=== PATIENT | female | born 1960 | race Two or more races ===

== ENCOUNTER 2024-10-23 10:37 | Inpatient (IN) | payer MEDICAID, OTHER ==
[~2024-10-23] VITALS: Ht 162.6 cm; Wt 100.1 kg
--- NOTE | 2024-10-23 11:41 | ED.PDOC ---
HPI (NEURO) HPI Comments 64 year old female with a history of CHF, hypertension, pacemaker presents to the ED with a chief complaint of headache s/p fall onset 10/13/24. Patient states she fell on 10/13/24, fell backwards, hit RT side head, RT hip, states she saw black, unsure if there was LOC, was experiencing headache. Patient was taken to [place], states she was told she had to wait about [address] scan, left with no imaging done. Since then, patient has been experiencing headache, unsteady gait. 2 days ago, patient lost her balance, fell backwards, hit her head and LT arm on the ground, unsure if there was LOC, saw black, had a burning sensation on her head and nose. Since then, she noticed headache has worsen is also experiencing generalized body aches, unsteady gait. Patient states that she feels unsafe to go home and wants to stay in the hospital. Denies chest pain, shortness of breath, fever, chills, nausea, vomiting. No other symptoms or modifying factors present at this time. Chief Complaint: Fall Injury Time Seen by MD: 11:10 Reviewed Notes: Medications, Allergies Information Source: Patient Mode of Arrival: Ambulatory Severity: Moderate Headache Severity: Moderate Timing: Weeks Duration: Since onset Prehospital treatment: None Headache Quality: Sharp Headache Location: Generalized Symptoms: Imbalance Associated Signs and Symptoms: Headache Past Medical History PAST MEDICAL HISTORY: CHF, HTN Surgical History: Hernia Repair, Pacemaker PSYCHOLOGY TECHNICIAN History: No Pertinent PSYCHOLOGY TECHNICIAN History Family History Family History: Reviewed,noncontributory to illness, No family hx of Cancer, No family hx of DM, No family hx of Heart pratik, No family hx of HTN, No family hx ofKidney pratik, No family hx of Liver pratik, No family hx of Lung pratik, No family hx of Stroke Social History Smoker: Non-Smoker Alcohol: Denies ETOH Use Drugs: Denies Drug Use Lives In: Home Constitutional: denies: chills, diaphoresis, fatigue, fever, malaise, sweats, weakness, others EENTM: reports: eye redness (LT); denies: blurred vision, double vision, ear bleeding, ear discharge, ear drainage, ear pain, ear ringing, eye pain, hearing loss, mouth pain, mouth swelling, nasal discharge, nose bleeding, nose congestion, nose pain, photophobia, tearing, throat pain, throat swelling, voice changes, others Respiratory: denies: cough, hemoptysis, orthopnea, SOB at rest, shortness of breath, SOB with excertion, stridor, wheezing, others Cardiovascular: denies: chest pain, dizzy spells, diaphoresis, Dyspnea on exertion, edema, irregular heart beat, left arm pain, lightheadedness, palpitations, PND, syncope, others Gastrointestinal: denies: abdomen distended, abdominal pain, blood streaked bowels, constipated, diarrhea, dysphagia, difficulty swallowing, hematemesis, melena, nausea, poor appetite, poor fluid intake, rectal bleeding, rectal pain, vomiting, others Genitourinary: denies: abnormal vagina bleeding, burning, dyspareunia, dysuria, flank pain, frequency, hematuria, incontinence, pain, , vagina discharge, urgency, others Neurological: reports: dizziness, headache, others (unsteady gait); denies: fainting, left sided numbness, left sided weakness, numbness, paresthesia, pre- existing deficit, right sided numbness, right sided weakness, seizure, speech problems, tingling, tremors, weakness Musculoskeletal: reports: others (LT arm pain); denies: back pain, gout, joint pain, joint swelling, muscle pain, muscle stiffness, neck pain Integumetry: denies: bruises, change in color, change in hair/nails, dryness, laceration, lesions, lumps, rash, wounds, others Allergic/Immunocompromised: denies: Difficulty Healing, Frequent Infections, Hives, Itching, others Hematologic/Lymphatic: denies: anemia, blood clots, easy bleeding, easy bruising, swollen glands, others Endocrine: denies: excessive hunger, excessive sweating, excessive thirst, excessive urination, flushing, intolerance to cold, intolerance to heat, unexplained weight gain, unexplained weight loss, others Psychiatric: denies: anxiety, bipolar disorder, depression, hopeless, panic disorder, schizophrenia, sleepless, suicidal, others All Other Systems: Reviewed and Negative Physical Exam General Appearance: Normal, Other (Tired appearing) HEENT: Normal ENT Inspection, Pharynx Normal, TMs Normal Neck: Full Range of Motion, Non-Tender, Normal, Normal Inspection Respiratory: Chest Non-Tender, Lungs Clear, No Accessory Muscle Use, No Respiratory Distress, Normal Breath Sounds Cardiovascular: No Edema, No JVD, No Murmur, No Gallop, Normal Peripheral Pulses, Regular Rate/Rhythm Breast Exam: Deferred Gastrointestinal: No Organomegaly, Non Tender, No Pulsatile Mass, Normal Bowel Sounds, Soft Genitalia: Deferred Pelvic: Deferred Rectal: Deferred Extremities: No calf tenderness, Normal capillary refill, Normal inspection, Normal range of motion, Non-tender, No pedal edema Musculoskeletal : Apperance: Normal Neurologic: Alert, licensed practical nurse instructor II-XII nml as Tested, No Motor Deficits, Normal Affect, Normal Mood, No Sensory Deficits, Other (Able to ambulate but appears to be unsteady) Cerebellar Function: NOT DONE Reflexes: NOT DONE Skin: Dry, Normal Color, Warm Lymphatic: No Adenopathy Was a procedure done? Was a procedure done?: No Differential Diagnosis (SZ) Seizure: Closed Head Injury, CVA/TIA, Syncope, Encephalopathy CVA: CVA, Electrolyte Imbalance, Hypoglycemia, SAH Headache: Migraine, Subarachnoid Hemorrhage, Subdural Hemorrhage X-Ray, Labs, Meds, VS Vital Signs Date Time Temp Pulse Resp B/P (MAP) Pulse Ox O2 Delivery O2 Flow Rate FiO2 10/23/24 10:50 70 10/23/24 10:42 98.1 76 18 153/89 97 98.1 Lab Test 10/23/24 11:36 Range/Units White Blood Count 5.0 4.4-10.8 10^3/uL Red Blood Count 4.63 4.0-5.20 10^6/uL Hemoglobin 13.8 12.2-16.2 g/dL Hematocrit 40.7 36.0-46.0 % Mean Corpuscular Volume 87.8 80.0-100.0 fL Mean Corpuscular Hemoglobin 29.7 28.0-32.0 pg Mean Corpuscular Hemoglobin Concent 33.8 32.0-36.0 g/dL Red Cell Distribution Width 13.9 11.8-14.3 % Platelet Count 198 140-450 10^3/uL Mean Platelet Volume 8.3 6.9-10.8 fL Neutrophils (%) (Auto) 65.2 37.0-80.0 % Lymphocytes (%) (Auto) 24.3 10.0-50.0 % Monocytes (%) (Auto) 7.6 0.0-12.0 % Eosinophils (%) (Auto) 2.2 0.0-7.0 % Basophils (%) (Auto) 0.7 0.0-2.0 % Neutrophils # (Auto) 3.3 1.6-8.6 10 ^3/uL Lymphocytes # (Auto) 1.2 0.4-5.4 10 ^3/uL Monocytes # (Auto) 0.4 0-1.3 10 ^3/uL Eosinophils # (Auto) 0.1 0-0.8 10 ^3/uL Basophils # (Auto) 0 0-0.2 10 ^3/uL Nucleated Red Blood Cells 0.1 % Sodium Level 140 136-145 mmol/L Potassium Level 4.4 3.5-5.1 mmol/L Chloride Level 106 98-107 mmol/L Carbon Dioxide Level 26 20-31 mmol/L Anion Gap 8 5-15 Blood Urea Nitrogen 15 9-23 mg/dL Creatinine 0.69 0.550-1.02 mg/dL Glomerular Filtration Rate Calc 98 >90 mL/min BUN/Creatinine Ratio 21.7 H 10.0-20.0 Serum Glucose 82 74-106 mg/dL Calcium Level 9.1 8.7-10.4 mg/dL Troponin I High Sensitivity 4 </=34 ng/L B-Type Natriuretic Peptide 52.37 0-100 pg/mL Lipase 38 12-53 U/L Current Medications Medications (Trade) Dose Ordered Sig/Rossy Route Start Time Stop Time Status Last Admin Sodium Chloride 1,000 ml @ 1,000 mls/hr Q1H ONCE IV 10/23/24 12:15 10/23/24 13:14 DC 10/23/24 12:35 X-Ray, Labs, Meds, VS Comment 64-year-old female with a history of CHF, pacemaker, additional medical problems here today with complaints of multiple falls, unsteady gait, generalized weakness. Vital signs stable, afebrile. Physical exam without significant acute findings aside from patient having an unsteady gait. Labs overall reassuring without evidence of significant abnormalities. Troponin negative and EKG without evidence of acute ischemia, doubt ACS. No significant electrolyte abnormalities. CT head and cervical spine without evidence of acute pathology. Chest x-ray unremarkable. 1 L of normal saline ordered for the patient. Patient to be admitted for further management of her generalized weakness and unsteady gait, consideration of PT/OT/Neurology consult/MRI/telemetry monitoring. Patient understanding and in agreement with the plan. Time of 1ST Reevaluation: 11:40 Reevaluation 1ST: Unchanged Patient Education/Counseling: Diagnosis, Treatment, Prognosis Family Education/Counseling: No Family Present Additional Information The following tests were ordered, and results were reviewed by me: EKG, BMP, LIPASE, BNP, TROP,CT HEAD WO CONTRAST, CT CERVICAL WO CONTREAST, XY CHEST, UA I reviewed and agreed with the following test results read by other provider: CT HEAD WO CONTRAST, CT CERVICAL WO CONTREAST, XY CHEST I discussed treatments and results with medical personnel and: PATIENT Comprehensive systems review obtained and negative except for what is stated in the HPI. Departure 1 Departure Time of Disposition: 13:23 Impression: Primary Impression: Frequent falls Additional Impressions: Generalized weakness History of CHF (congestive heart failure) History of pacemaker Unsteady gait Disposition: 02 SHORT TERM HOSPITAL Admit to: Tele Condition: Stable Critical Care Note Critical Care Time?: Yes (30 min-critical care time only) Stability Stability form required: No Heart Score Heart Score: Heart Score Response (Comments) Value History N/A 0 EKG N/A 0 Age N/A 0 Risk Factors N/A 0 Troponin N/A 0 Total 0 I personally scribed for VINCE PALAFOX MD ([email or web address]) on 10/23/24 at 11:41. Electronically submitted by Yi Sharp ([email or web address]). I personally scribed for VINCE PALAFOX MD ([email or web address]) on 10/23/24 at 11:58. Electronically submitted by Yi Sharp ([email or web address]). VINCE PALAFOX MD Oct 23, 2024 11:41
--- NOTE | 2024-10-23 11:43 | DVH ---
EXAM: XY CHEST PORTABLE HISTORY: fall COMPARISON: None TECHNIQUE: Portable upright AP view of the chest was performed. FINDINGS: No pneumothorax, consolidative infiltrates, or pulmonary edema. The heart is borderline enlarged. The re is a left chest AICD. There is abundant overlying soft tissue. No fractures are identified about t he bony thorax. IMPRESSION: 1. No acute intrathoracic process. 2. Left chest AICD and borderline cardiomegaly.
[2024-10-23 11:55] LABS: Hematocrit 40.7 % (36.0-46.0); Hemoglobin 13.8 g/dL (12.2-16.2); Mean Corpuscular Hemoglobin 29.7 pg (28.0-32.0); Mean Corpuscular Volume 87.8 fL (80.0-100.0); Nucleated Red Blood Cells % 0.1 %
[2024-10-23 12:01] LABS: Anion Gap 8 (5-15); Carbon Dioxide 26 mmol/L (20-31); Chloride 106 mmol/L (98-107); Potassium 4.4 mmol/L (3.5-5.1); Sodium 140 mmol/L (136-145)
[2024-10-23 12:03] LABS: Calcium 9.1 mg/dL (8.7-10.4)
[2024-10-23 12:07] LABS: BUN/Creatinine Ratio 21.7 (10.0-20.0); Blood Urea Nitrogen 15 mg/dL (9-23); Glucose 82 mg/dL (74-106)
--- NOTE | 2024-10-23 12:23 | DVH ---
EXAM: CT HEAD WITHOUT CONTRAST INDICATION: falls, weakness, dizzy TECHNIQUE: CT of the head without intravenous contrast. Radiation Dose : 1. Head: CT Dose: CTDI volume is 9 mGy. Dose-length product is 1198 mGy*cm The dose indicators for CT are the volume Computed Tomography (CT) Dose Index (CTDIvol) and the Dose Length Product (DLP), and are measured in units of mGy and mGy-cm, respectively. These indicators are not patient dose, but values generated from the CT scanner acquisition factors. The report includes radiation exposure data for exposures received during this examination. COMPARISON: None FINDINGS: There is no evidence of acute intracranial hemorrhage, extra-axial collection, mass effect, midline s hift, herniation or hydrocephalus. The ventricles, sulci and cisterns are age appropriate. The jang-white differentiation is intact. Patchy periventricular and subcortical white matter hypoattenuation is nonspecific but may be related to small vessel ischemic disease. The visualized paranasal sinuses and mastoid air cells are clear. The surrounding soft tissues and osseous structures are unremarkable. IMPRESSION: No acute intracranial abnormality. Radiation optimization: All CT scans at this facility use at least one of these dose optimization wilda hniques: automated exposure control mA and/or kV adjustment per patient size (includes targeted exam s where dose is matched to clinical indication) or iterative reconstruction.
--- NOTE | 2024-10-23 12:28 | DVH ---
EXAM: CT CERVICAL WITHOUT CONTRAST HISTORY: fall, trauma, pain COMPARISON: None CTDIvol 9.1 mGy, DLP 11 98 mGy*cm. TECHNIQUE: Multiple axial CT images of the spine were obtained using bone algorithm. Axial and sandhu l reformatting was done. Bone and soft tissue windows were reviewed. FINDINGS: No evidence of definite acute fracture, spinal dislocation, or significant appearing acute subluxatio n is seen. Multilevel degenerative changes of the spine. IMPRESSION: No definite CT evidence of acute fracture or dislocation of the bony cervical spine.
[2024-10-23] MEDS: SODIUM CHLORIDE 0.9% 1,000 ML IV ONE (12:35)
[2024-10-23 13:59] LABS: Urine Protein, UAD Negative (Negative)
[2024-10-23] MEDS ORDERED: PRAV20TA3 PO (16:27)
[2024-10-23] MEDS ORDERED: CARV6.2551 PO (16:27)
[2024-10-23] MEDS ORDERED: LISI-275 PO (16:27)
[2024-10-23] MEDS ORDERED: ASPI81CH49 PO (16:27)
[2024-10-23] MEDS ORDERED: DOCUSATE SOD 100 MG CAP PO PRN (16:30)
[2024-10-23] MEDS ORDERED: ACETAMINOPHEN 325 MG TAB PO PRN (16:30)
[2024-10-23] MEDS ORDERED: ONDANSETRON HCL 4 MG/2 ML VIAL IV PRN (16:30)
--- NOTE | 2024-10-23 16:56 | DVHHP2 ---
History of Present Illness Reason for Visit: Generalized weakness History of Present Illness Lian Bocanegra is a 64-year-old female with past medical history of hypertension, hyperlipidemia, VA, CVA, hyperlipidemia, PE, and CHF, who came to the hospital S/P fall with injury. Patient states she fell on 10/13/2024. Her fall was not witnessed, she states she felt dizzy and weak, and things went black when she fell. She can not say if she had a loss of consciousness. She does know that she did hit her head. She went to [facility]. The wait for a CT was more then 6 hours so she left. Since that fall she has been experiencing daily headaches, weakness, fatigue, and body aches. She fell again on . States it was a similar experience but this time she hit the left side of her head, and left shoulder. She came to the hospital today due to the daily headaches, body aches and generalized weakness. She states the dizziness is worse when she goes from sitting to standing. [place] and has not established a primary care provider or a delivery agent. Patient states last time she had an ECHO was a couple years ago and she was told her heart function was at 30%. 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 GI: Other (esophageal stricture ) Past Surgical History: Cholecystectomy, (x 4), Hernia Repair, Other (Esophageal, carpal tunnel), Total knee replacement (right), Tonsillectomy Smoke: No ALCOHOL: none Drugs: None Lives: with Family Domestic Violence: Neg Review of Systems Constitutional: Yes: Weakness, Malaise; No: Fever, Chills, Sweats, Other Eyes: No: Pain, Vision change, Conjunctivae inflammation, Eyelid inflammation, Other, Redness ENT: No: Ear pain, Ear discharge, Nose pain, Nose discharge, Nose congestion, Mouth pain, Mouth swelling, Throat pain, Throat swelling, Other Respiratory: No: Cough, Dry, Shortness of breath, SOB with excertion, Wheezing, Hemoptysis, Pleuritic Pain, Sputum, Wheezing, Other Cardiovascular: No: Chest Pain, Palpitations, Orthopnea, Paroxysmal Noc. Dyspnea, Edema, Lt Headedness, Other Gastrointestinal: No: Nausea, Vomiting, Abdominal Pain, Diarrhea, Constipation, Melena, Hematochezia, Other Genitourinary: No Dysuria, No Frequency, No Incontinence, No Hematuria, No Re tention, No Other Musculoskeletal: No: other, neck pain, shoulder pain, arm pain, back pain, hand pain, leg pain, foot pain Skin: No: Rash, Lesions, Jaundice, Bruising, Other Neurological: Weakness; No: Numbness, Incoordination, Change in speech, Confusion, Seizures, Other Allergies: Coded Allergies: Gabapentin (Verified Allergy, Unknown, 10/23/24) Morphine (Verified Allergy, Unknown, 10/23/24) Medications Current Medications Medications Dose Ordered Sig/Rossy Route Start Time Stop Time Status Last Admin Dose Admin Acetaminophen/ Hydrocodone Bitart 1 tab Q4HP PRN PO 10/23/24 16:30 UNV Ondansetron HCl 4 mg Q4HP PRN IV 10/23/24 16:30 UNV Docusate Sodium 100 mg BIDPRN PRN PO 10/23/24 16:30 UNV Zinc Sulfate 220 mg DAILY PO 10/24/24 10:00 UNV Acetaminophen 650 mg Q6HP PRN PO 10/23/24 16:30 UNV Exam Vital Signs Vital Signs Date Time Temp Pulse Resp B/P (MAP) Pulse Ox O2 Delivery O2 Flow Rate FiO2 10/23/24 15:25 97.4 58 16 104/75 (85) 97 97.4 10/23/24 15:21 Room Air* 0 21 General Appearance: Alert, Oriented X3, Cooperative, mild distress HEENT: Atraumatic, PERRLA, Other (Headache) Respiratory: Clear to auscultation, Normal air movement Cardiovascular: Regular rate, Normal S1, Normal S2, No murmurs Abdominal: Normal bowel sounds, Soft, No tenderness, No hepatospenomegaly Extremities: No clubbing, No cyanosis, No edema, Normal pulses Skin: No rashes, No breakdown, No significant lesion Neuro: Normal speech, Normal tone Psych/Mental Status: Mental status NL, Mood NL Labs/Xrays Labs Test 10/23/24 13:50 10/23/24 11:36 Range/Units Urine Color Light-yellow Yellow Urine Clarity Clear Clear Urine pH 5.5 5.0-9.0 Urine Specific [place] 1.016 1.001-1.035 Urine Protein Negative Negative Urine Ketones Negative Negative Urine Blood Negative Negative /uL Urine Nitrite Negative Negative Urine Bilirubin Negative Negative Urine Urobilinogen Normal Negative mg/dL Urine Leukocyte Esterase Negative Negative /uL Urine RBC 1 0 - 4 /hpf Urine Microscopic WBC < 1 0-5 /HPF Urine Squamous Epithelial Cells Few <5 /hpf Urine Bacteria None seen None Seen /hpf Urine Glucose Normal Normal mg/dL White Blood Count 5.0 4.4-10.8 10^3/uL Red Blood Count 4.63 4.0-5.20 10^6/uL Hemoglobin 13.8 12.2-16.2 g/dL Hematocrit 40.7 36.0-46.0 % Mean Corpuscular Volume 87.8 80.0-100.0 fL Mean Corpuscular Hemoglobin 29.7 28.0-32.0 pg Mean Corpuscular Hemoglobin Concent 33.8 32.0-36.0 g/dL Red Cell Distribution Width 13.9 11.8-14.3 % Platelet Count 198 140-450 10^3/uL Mean Platelet Volume 8.3 6.9-10.8 fL Neutrophils (%) (Auto) 65.2 37.0-80.0 % Lymphocytes (%) (Auto) 24.3 10.0-50.0 % Monocytes (%) (Auto) 7.6 0.0-12.0 % Eosinophils (%) (Auto) 2.2 0.0-7.0 % Basophils (%) (Auto) 0.7 0.0-2.0 % Neutrophils # (Auto) 3.3 1.6-8.6 10 ^3/uL Lymphocytes # (Auto) 1.2 0.4-5.4 10 ^3/uL Monocytes # (Auto) 0.4 0-1.3 10 ^3/uL Eosinophils # (Auto) 0.1 0-0.8 10 ^3/uL Basophils # (Auto) 0 0-0.2 10 ^3/uL Nucleated Red Blood Cells 0.1 % Sodium Level 140 136-145 mmol/L Potassium Level 4.4 3.5-5.1 mmol/L Chloride Level 106 98-107 mmol/L Carbon Dioxide Level 26 20-31 mmol/L Anion Gap 8 5-15 Blood Urea Nitrogen 15 9-23 mg/dL Creatinine 0.69 0.550-1.02 mg/dL Glomerular Filtration Rate Calc 98 >90 mL/min BUN/Creatinine Ratio 21.7 H 10.0-20.0 Serum Glucose 82 74-106 mg/dL Calcium Level 9.1 8.7-10.4 mg/dL Troponin I High Sensitivity 4 </=34 ng/L B-Type Natriuretic Peptide 52.37 0-100 pg/mL Lipase 38 12-53 U/L EXAM: CT CERVICAL WITHOUT CONTRAST FINDINGS: No evidence of definite acute fracture, spinal dislocation, or significant appearing acute subluxation is seen. Multilevel degenerative changes of the spine. IMPRESSION: No definite CT evidence of acute fracture or dislocation of the bony cervical spine. EXAM: XY CHEST PORTABLE TECHNIQUE: Portable upright AP view of the chest was performed. FINDINGS: No pneumothorax, consolidative infiltrates, or pulmonary edema. The heart is borderline enlarged. There is a left chest AICD. There is abundant overlying soft tissue. No fractures are identified about the bony thorax. IMPRESSION: 1. No acute intrathoracic process. 2. Left chest AICD and borderline cardiomegaly. EXAM: CT HEAD WITHOUT CONTRAST FINDINGS: There is no evidence of acute intracranial hemorrhage, extra-axial collection, mass effect, midline shift, herniation or hydrocephalus. The ventricles, sulci and cisterns are age appropriate. The jang-white differentiation is intact. Patchy periventricular and subcortical white matter hypoattenuation is nonspecific but may be related to small vessel ischemic disease. The visualized paranasal sinuses and mastoid air cells are clear. The surrounding soft tissues and osseous structures are unremarkable. IMPRESSION: No acute intracranial abnormality. SEPSIS Sepsis Screen Date sepsis recognized/suspect: Oct 23, 2024 Time Sepsis recognized/suspect: 1521 Recent Procedure: No On Antibiotic Therapy: No Respiratory Rate >20: No Heart Rate >90: No Temp<36 C (96.8 F) or >38.3 C: No SBP <90 or MAP <65 mmHG: No New Acute Mental Status Change: No Is the patient on CPAP, BIPAP,: No Physician Orders Electrocardigram (10/23/24 10:46) Head Without Contrast (10/23/24 10:59) Cervical Without Contrast (10/23/24 10:59) Chest Portable (10/23/24 10:59) Admit (10/23/24 16:23) Code Status (10/23/24 16:23) Hydrocodone-Acet 5/325mg Tab ([place] 5/32 (10/23/24 16:30) Ondansetron Hcl (Zofran) (10/23/24 16:30) Docusate Sodium Capsule (Colace Capsule) (10/23/24 16:30) Zinc Sulfate (10/24/24 10:00) Fall Risk Precautions In Place QSHIFT (10/23/24 16:23) Complete Blood Count (10/24/24 04:00) Comprehensive Metabolic Panel (10/24/24 04:00) Cardiac Diet-2gna,Lofat,Lochol (10/23/24 Dinner) Pt Request For Service (10/23/24 16:23) Condition: Serious (10/23/24 16:23) Acetaminophen Tablet (Tylenol Tablet) (10/23/24 16:30) Ketorolac Injection (Toradol Injection) (10/23/24 16:30) Vital Signs Date Time Temp Pulse Resp B/P (MAP) Pulse Ox O2 Delivery O2 Flow Rate FiO2 10/23/24 15:25 97.4 58 16 104/75 (85) 97 97.4 10/23/24 15:21 Room Air* 0 21 10/23/24 10:50 70 10/23/24 10:42 98.1 76 18 153/89 97 98.1 Laboratory Tests Test 10/23/24 11:36 White Blood Count 5.0 10^3/uL (4.4-10.8) Medications Medications Dose Ordered Sig/Rossy Route Start Time Stop Time Status Last Admin Dose Admin Sodium Chloride 1,000 ml @ 1,000 mls/hr Q1H ONCE IV 10/23/24 12:15 10/23/24 13:14 DC 10/23/24 12:35 1,000 MLS/HR Assessment/Plan Assessment/Plan Assessment: Frequent falls, Generalized weakness, Intractable headaches, Possible syncopal episodes, CHF, Hyperlipidemia, Hypertension, Plan: Admit to Tele, Neurology consult, Consider cardiology consult, Carotid duplex, ECHO, Pain management, Physical therapy evaluation, Fall risk, Home medications reconciled, Plan discussed with: Patient My Orders Orders - 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 Procedure Category Date Status Time Admit ADMIT 10/23/24 Transmitted 16:23 Code Status CODE 10/23/24 Transmitted 16:23 Hydrocodone-Acet PHA 10/23/24 Logged 5/325mg Tab ([place] 16:30 Ondansetron Hcl PHA 10/23/24 Logged (Zofran) 16:30 Docusate Sodium PHA 10/23/24 Logged Capsule (Colace 16:30 Zinc Sulfate PHA 10/24/24 Logged 10:00 Fall Risk Precautions CHERRY 10/23/[address] 16:23 Complete Blood Count LAB 10/24/24 Verified 04:00 Comprehensive LAB 10/24/24 Verified Metabolic Panel 04:00 Cardiac DIET 10/23/24 Transmitted Diet-2gna,Lofat,Lochol Dinner Pt Request For Service PT 10/23/24 Logged 16:23 Condition: Serious CHERRY 10/23/24 In Process 16:23 Acetaminophen Tablet PHA 10/23/24 Logged (Tylenol Tablet) 16:30 Ketorolac Injection PHA 10/23/24 Logged (Toradol Injection) 16:30 Date of Service: Oct 23, 2024 Billing Provider: ZACH FLEMING Common Visit Codes: [id number] INP/OBS CARE (MOD) ZACH FLEMING Oct 23, 2024 16:56
--- NOTE | 2024-10-23 17:07 | DVH ---
Carotid Duplex Date: 10/23/2024 04:32 PM Clinical History: Frequent falls, syncope Comparison: None Technique: Duplex Doppler evaluation of the extracranial carotid and vertebral arteries including col or Doppler and spectral/pulsed waveform analysis was performed. Findings: RIGHT SIDE: The peak systolic velocities are 9 cm/s in the distal CCA and 90 cm/s in the proximal ICA.The ICA/CCA ratio is less than 2. The external carotid artery is patent with peak systolic velocity of 49 cm/s proximally. There is appropriate antegrade flow in the right vertebral artery. LEFT SIDE: The peak systolic velocities are 63 cm/s in the distal CCA and 79 cm/s in the proximal ICA.. The ICA/ CCA ratio is less than 2. The external carotid artery is patent with peak systolic velocity of 59 cm/s proximally. There is appropriate antegrade flow in the left vertebral artery. IMPRESSION: 1. No hemodynamically significant stenosis noted in the right carotid system. 2. No hemodynamically significant stenosis noted in the left carotid system. 3. Reference: Radiology 2003; [id number]
[2024-10-23] MEDS: KETOROLAC TROMETH 30 MG/ML 1ML VIAL IV ONE (17:13)
[2024-10-23] MEDS: PRAVASTATIN SODIUM 20 MG TAB PO SCH (18:08)
[2024-10-23 18:40] VITALS: PULSE 64; RESP 16; O2SAT 99
[2024-10-23 19:30] VITALS: PULSE 85; RESP 16; O2SAT 98
[2024-10-23 22:00] VITALS: BP 132/69; PULSE 67; RESP 17; TEMP 97.7; O2SAT 96
[2024-10-23] MEDS ORDERED: PATIENTS OWN MEDICATION (Carvedilol 1 TAB) PO SCH (22:00)
[2024-10-23 22:12] VITALS: BP 132/68; PULSE 67; RESP 17; TEMP 97.7; O2SAT 97
[2024-10-23] MEDS: CARVEDILOL 3.125 MG TAB PO SCH (22:36)
[2024-10-23] MEDS: KETOROLAC TROMETH 30 MG/ML 1ML VIAL IV PRN (23:33)
[2024-10-24 00:37] VITALS: BP 110/68; PULSE 66; RESP 17; TEMP 98.6; O2SAT 95
[2024-10-24 04:57] VITALS: BP 105/61; PULSE 62; RESP 17; TEMP 97.8; O2SAT 96
[2024-10-24 07:16] LABS: Hematocrit 36.5 % (36.0-46.0); Hemoglobin 13.0 g/dL (12.2-16.2); Mean Corpuscular Hemoglobin 31.2 pg (28.0-32.0); Mean Corpuscular Volume 87.9 fL (80.0-100.0); Nucleated Red Blood Cells % 0.0 %
[2024-10-24 07:28] LABS: Alanine Aminotransferase 10 U/L (7-40); Albumin 4.0 g/dL (3.2-4.8); Alkaline Phosphatase 72 U/L (46-116); Anion Gap 9 (5-15); BUN/Creatinine Ratio 20.5 (10.0-20.0); Blood Urea Nitrogen 15 mg/dL (9-23); Carbon Dioxide 24 mmol/L (20-31); Potassium 3.9 mmol/L (3.5-5.1); Sodium 142 mmol/L (136-145); Total Protein 6.3 g/dL (5.7-8.2)
[2024-10-24 07:29] LABS: Bilirubin, Total 0.4 mg/dL (0.2-1.0); Calcium 8.7 mg/dL (8.7-10.4); Chloride 109 mmol/L (98-107); Glucose 72 mg/dL (74-106)
[2024-10-24 08:00] VITALS: PULSE 71; PULSE 77; RESP 17; O2SAT 98
[2024-10-24 09:00] VITALS: BP 116/75; PULSE 71; RESP 17; TEMP 97.8; O2SAT 98
[2024-10-24] MEDS: LISINOPRIL 5 MG TAB PO SCH (09:32)
[2024-10-24] MEDS: ZINC SULFATE 220mg CAP or TAB PO SCH (09:33)
[2024-10-24] MEDS: HYDROcodone-ACET 5/325MG TAB PO PRN (09:39)
[2024-10-24] MEDS ORDERED: PATIENTS OWN MEDICATION (Aspirin 81 MG) PO SCH (10:00)
--- NOTE | 2024-10-24 10:55 | DVHSR ---
APPROVED REPORT EXAM: Two-dimensional and M-mode echocardiogram with Doppler and color Doppler. Blood Pressure: 105/61 mmHg INDICATION CHF, frequent falls, syncope Surgery/Intervention Pacemaker: RISK FACTORS Height: 64, Weight: 220 DIMENSIONS LVDd4.7 (3.8-5.7cm)LA (2D)4.2 (1.9-4.0cm)Aortic Root3.3 (2.0-3.7cm) LVDs4.1 (2.5-4.0cm)LA (MM) (1.9-4.0cm)Aortic Cusp Exc1.8 (1.5-2.0cm) EF (%) 30.0 (55-70%)Rt. Atrium4.6 (1.9-4.0cm)Asc. Aorta cm IVSd1.1 (0.7-1.1cm)RV (D) (1.8-2.4cm) PWd1.1 (0.7-1.1cm) Mitral Valve MitralMitral Stenosis E wave0.77m/sMV Mean GR.2mmHg A wave0.94m/sMV Peak GR.65mmHg E/A ratio0.82D MVAcm2 DECEL [id number] 1/2 Rbve93te IVRTmsDop MVA2.68cm2 Aortic Valve Aortic ValveAortic Stenosis V10.81m/Hemal Mean GR.4mmHg V21.31m/Hemal Peak GR.7mmHg LVOT Diameter2.4 (1.8-2.4cm)Doppler AVA2.80cm2 Pulmonic Valve V20.82m/s Tricuspid Valve TR Velocity2.31m/s [id number] Conclusion lvef 35 - 40% by visual estmate moderate LV dysfunction RV pacing lead is present left atrium enlarged mild mild tricuspid regurg
[2024-10-24 13:00] VITALS: BP 115/77; PULSE 75; RESP 17; TEMP 98.4; O2SAT 98
--- NOTE | 2024-10-24 14:42 | DVHDSRES ---
Discharge Summary Date of Admission Resident Creating Document: RENEE DE ANDA RESIDENT Oct 23, 2024 at 16:23 Date of Discharge: Oct 24, 2024 Admitting Diagnosis Intractable headache Labs/Diagnostic Data: Laboratory Results Test 10/24/24 05:03 10/23/24 13:50 10/23/24 11:36 White Blood Count 4.2 10^3/uL (4.4-10.8) Red Blood Count 4.16 10^6/uL (4.0-5.20) Hemoglobin 13.0 g/dL (12.2-16.2) Hematocrit 36.5 % (36.0-46.0) Mean Corpuscular Volume 87.9 fL (80.0-100.0) Mean Corpuscular Hemoglobin 31.2 pg (28.0-32.0) Mean Corpuscular Hemoglobin Concent 35.5 g/dL (32.0-36.0) Red Cell Distribution Width 13.7 % (11.8-14.3) Platelet Count 161 10^3/uL (140-450) Mean Platelet Volume 8.5 fL (6.9-10.8) Neutrophils (%) (Auto) 61.8 % (37.0-80.0) Lymphocytes (%) (Auto) 26.5 % (10.0-50.0) Monocytes (%) (Auto) 7.7 % (0.0-12.0) Eosinophils (%) (Auto) 3.2 % (0.0-7.0) Basophils (%) (Auto) 0.8 % (0.0-2.0) Neutrophils # (Auto) 2.6 10 ^3/uL (1.6-8.6) Lymphocytes # (Auto) 1.1 10 ^3/uL (0.4-5.4) Monocytes # (Auto) 0.3 10 ^3/uL (0-1.3) Eosinophils # (Auto) 0.1 10 ^3/uL (0-0.8) Basophils # (Auto) 0 10 ^3/uL (0-0.2) Nucleated Red Blood Cells 0.0 % Sodium Level 142 mmol/L (136-145) Potassium Level 3.9 mmol/L (3.5-5.1) Chloride Level 109 mmol/L (98-107) Carbon Dioxide Level 24 mmol/L (20-31) Anion Gap 9 (5-15) Blood Urea Nitrogen 15 mg/dL (9-23) Creatinine 0.73 mg/dL (0.550-1.02) Glomerular Filtration Rate Calc 93 mL/min (>90) BUN/Creatinine Ratio 20.5 (10.0-20.0) Serum Glucose 72 mg/dL (74-106) Calcium Level 8.7 mg/dL (8.7-10.4) Total Bilirubin 0.4 mg/dL (0.2-1.0) Aspartate Amino Transferase (AST) 13 U/L (13-40) Alanine Aminotransferase (ALT) 10 U/L (7-40) Alkaline Phosphatase 72 U/L (46-116) Total Protein 6.3 g/dL (5.7-8.2) Albumin 4.0 g/dL (3.2-4.8) Urine Color Light-yellow (Yellow) Urine Clarity Clear (Clear) Urine pH 5.5 (5.0-9.0) Urine Specific Dickinson 1.016 (1.001-1.035) Urine Protein Negative (Negative) Urine Ketones Negative (Negative) Urine Blood Negative /uL (Negative) Urine Nitrite Negative (Negative) Urine Bilirubin Negative (Negative) Urine Urobilinogen Normal mg/dL (Negative) Urine Leukocyte Esterase Negative /uL (Negative) Urine RBC 1 /hpf (0 - 4) Urine Microscopic WBC < 1 /HPF (0-5) Urine Squamous Epithelial Cells Few /hpf (<5) Urine Bacteria None seen /hpf (None Seen) Urine Glucose Normal mg/dL (Normal) Troponin I High Sensitivity 4 ng/L (</=34) B-Type Natriuretic Peptide 52.37 pg/mL (0-100) Lipase 38 U/L (12-53) Other Laboratory Tests 10/24/24 05:03 Brief Hx & Hospital Course: Patient is a 64-year-old woman with prior medical history of hypertension, HFrEF, CT x2 with no stents, hyperlipidemia, placement of AICD 7 years ago, who presented to ED with chief complaint of headache after 2 falls at home. According to the patient, she first fell on October 13 when a chair slid out from under her causing her to hit the back of her head against the wooden chair. She states that after this fall, her vision went black and she saw stars. Additionally, had immediate onset of headache and nausea. She states her [id number] took her to [facility] on the same day where according to the patient nothing was done and she was told to go home and return on a later date. Throughout the week, her headache and nausea worsened and on Wednesday she fell again in her kitchen and hit her head against the stove. Due to persistence of pain and nausea, she sought medical care. On evaluation in the ED, the patient was slightly hypertensive. Initial labs show CBC chemical and panel within normal range and unremarkable urinalysis. Cervical spine CT shows no definite CT evidence of acute fracture or dislocation of the bony cervical spine. Chest x-ray shows no acute intrathoracic process and presence of left chest AICD and borderline cardiomegaly. CT shows no acute intracranial abnormality. Carotid Doppler was ordered in order to evaluate for potential causes of syncope, this showed no hemodynamically significant stenosis noted in the right or left carotid systems. The patient was admitted for further workup and monitoring. She was started on Toradol IV and [place] for pain. Echocardiogram was ordered to evaluate cardiac function which showed LVEF 35-45% by visual estimate, moderate LV dysfunction, RV pacing lead is present, left atrium enlarged, mild tricuspid regurgitation The patient has progressed favorably. On evaluation today, the patient states she feels well, continues to have some pain but it is more controlled, currently denies nausea, vomiting, changes in vision, changes in hearing, loss of consciousness, fever, palpitations, and chest pain. She was able to sleep, is tolerating oral diet, and is able ambulate with care. vitals have been stable. Follow up CBC and chemical panel are within normal range. She is considered stable for discharge home with recommendations. All recommendations and lifestyle modifications have been thoroughly explained to the patient. She states she understands and agrees. Personal History: Hypertension, HFrEF, CT x2 with no stents, hyperlipidemia, placement of AICD 7 years ago Surgical history: R Knee replacement, Bilateral carpal tunnel repair, tonsillectomy, cholecystectomy, 4 C-sections Allergies: Morphine, Gabapentin Social: Denies alcohol, tobacco, and illicit drug use. States she lives with her son and his family and currently feels safe. Physical Exam: General: The patient alert and oriented in person place and time. Patient following commands HEENT: Normocephalic, atraumatic, normal reactive pupils, EOM intact, no bruising present, pink conjunctiva, pink moist mucous membrane, minor pain to palpation of scalp Respiratory/pulmonary: Bilateral chest expansion, presence of AICD under left chest, clear lungs bilaterally, vesicular murmurs present in almost all lung berry, no associated crackles or wheezes. Cardiovascular: Normal RRR, normal S1 and S2 Abdomen: Obese, Abdomen nondistended, normal bowel sounds, soft, there is no pain to palpation in any of the abdominal quadrants, no palpable masses. Extremities: no deformities, under pain to palpation of left knee, no pain to palpation of other extremities,, there is no peripheral edema present at the lower extremities, pulses are palpable Skin: No rashes or pruritus Neurological: Intact cranial nerves with no focal neurologic deficits Case discussed with Dr. Seymour Goals of care discussed with the patient for 25 minutes. She states she understands and agrees. Operations or Procedures EXAM: CT CERVICAL WITHOUT CONTRAST HISTORY: fall, trauma, pain COMPARISON: None CTDIvol 9.1 mGy, DLP 11 98 mGy*cm. TECHNIQUE: Multiple axial CT images of the spine were obtained using bone algorithm. Axial and coronal reformatting was done. Bone and soft tissue windows were reviewed. FINDINGS: No evidence of definite acute fracture, spinal dislocation, or significant appearing acute subluxation is seen. Multilevel degenerative changes of the spine. IMPRESSION: No definite CT evidence of acute fracture or dislocation of the bony cervical spine. EXAM: XY CHEST PORTABLE HISTORY: fall COMPARISON: None TECHNIQUE: Portable upright AP view of the chest was performed. FINDINGS: No pneumothorax, consolidative infiltrates, or pulmonary edema. The heart is borderline enlarged. There is a left chest AICD. There is abundant overlying soft tissue. No fractures are identified about the bony thorax. IMPRESSION: 1. No acute intrathoracic process. 2. Left chest AICD and borderline cardiomegaly. EXAM: CT HEAD WITHOUT CONTRAST INDICATION: falls, weakness, dizzy TECHNIQUE: CT of the head without intravenous contrast. Radiation Dose : 1. Head: CT Dose: CTDI volume is 9 mGy. Dose-length product is 1198 mGy*cm The dose indicators for CT are the volume Computed Tomography (CT) Dose Index (CTDIvol) and the Dose Length Product (DLP), and are measured in units of mGy and mGy-cm, respectively. These indicators are not patient dose, but values generated from the CT scanner acquisition factors. The report includes radiation exposure data for exposures received during this examination. COMPARISON: None FINDINGS: There is no evidence of acute intracranial hemorrhage, extra-axial collection, mass effect, midline shift, herniation or hydrocephalus. The ventricles, sulci and cisterns are age appropriate. The jang-white differentiation is intact. Patchy periventricular and subcortical white matter hypoattenuation is nonspecific but may be related to small vessel ischemic disease. The visualized paranasal sinuses and mastoid air cells are clear. The surrounding soft tissues and osseous structures are unremarkable. IMPRESSION: No acute intracranial abnormality. Carotid Duplex Date: 10/23/2024 04:32 PM Clinical History: Frequent falls, syncope Comparison: None Technique: Duplex Doppler evaluation of the extracranial carotid and vertebral arteries including color Doppler and spectral/pulsed waveform analysis was performed. Findings: RIGHT SIDE: The peak systolic velocities are 9 cm/s in the distal CCA and 90 cm/s in the proximal ICA.The ICA/CCA ratio is less than 2. The external carotid artery is patent with peak systolic velocity of 49 cm/s proximally. There is appropriate antegrade flow in the right vertebral artery. LEFT SIDE: The peak systolic velocities are 63 cm/s in the distal CCA and 79 cm/s in the proximal ICA.. The ICA/CCA ratio is less than 2. The external carotid artery is patent with peak systolic velocity of 59 cm/s proximally. There is appropriate antegrade flow in the left vertebral artery. IMPRESSION: 1. No hemodynamically significant stenosis noted in the right carotid system. 2. No hemodynamically significant stenosis noted in the left carotid system. Condition at Discharge: Stable Final Diagnosis/Problems List Intractable headache secondary to possible concussion Chronic HFrEF, not exacerbated S/P AICD Placement Syncope ruled out Hypertension Hyperlipidemia History of CT x 2 with no stents Discharge Disposition: Home Discharge Instruct/Medications Diet: Cardiac 2g Na,low cholest Activity: No Restrictions, As Tolerated Follow Up/Referral: [facility] up with [facility] clinic Medications: Aspirin 81 mg p.o. daily Carvedilol 1 tab p.o. b.i.d. Lisinopril 5 mg p.o. daily Pravastatin 2 tabs p.o. q.p.m. Scheduled Aspirin (Aspirin), 81 MG PO DAILY, (Reported) Carvedilol (Carvedilol), 1 TAB PO BID, (Reported) Lisinopril (Lisinopril), 5 MG PO DAILY, (Reported) Pravastatin Sodium (Pravachol Tablet), 2 TAB PO QPM, (Reported) Discharge Statement: "Patient was advised to return to the ER or call 911 if any headaches, dizziness, shortness of breath, chest pain, abdominal pain, bleeding, fevers, or worsening of medical condition. Patient was counseled about treatment plan, medications, possible side effects, patientverbalized understanding. All questions were answered to the best of my ability. This discharge took greater then 30 minutes in planning, reviewing documentation, counseling the patient, and discussing with other team members." ASSESSMENT ASSESSMENT Assessment possible concussion RENEE DE ANDA RESIDENT Oct 24, 2024 14:42
[2024-10-25 10:45] LABS: Hepatitis B Surface Antigen Negative (Negative); Hepatitis C Antibody Negative (Negative)
--- NOTE | 2024-10-25 12:20 | ECG ---
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 Anteroseptal CA old. Electronically Signed On 10-25-2024 22:28:04 PDT by Heriberto George Please click the below link to view image of tracing.
== END 2024-10-24 15:20 | disposition home or self-care (01) | DRG 57 ==
LOC: ER 10:37 → OVERFLOW 16:23 → TELE-WESTW 22:00
PROVIDERS: ADMIT Internal Medicine Geriatric Medicine; ATTEND Internal Medicine Geriatric Medicine
DX: S06.0X0A Concussion without loss of consciousness, initial encounter (principal); I11.0 Hypertensive heart disease with heart failure; I50.22 Chronic systolic (congestive) heart failure; E78.5 Hyperlipidemia, unspecified; R29.6 Repeated falls; Z96.651 Presence of right artificial knee joint; G56.03 Carpal tunnel syndrome, bilateral upper limbs; W18.39XA Other fall on same level, initial encounter; Z86.73 Personal history of transient ischemic attack (TIA), and cerebral infarction without residual deficits; Z86.711 Personal history of pulmonary embolism; Z90.49 Acquired absence of other specified parts of digestive tract; Z88.5 Allergy status to narcotic agent; I25.2 Old myocardial infarction; Y93.89 Activity, other specified; Y92.89 Other specified places as the place of occurrence of the external cause; Y99.8 Other external cause status; Z95.810 Presence of automatic (implantable) cardiac defibrillator
CPT/HCPCS: 36415; 70450; 71045; 72125; 80048; 80053; 81001; 83690; 83880; 84484; 85025; 86803; 87081; 87340; 93005; 93306; 93886; 96361; 96374; 97163; 99291; G0378; J1885